=== PATIENT | female | born 1930 | race African-American/Black ===

== ENCOUNTER 2017-01-17 03:03 | Observation (INO) | payer MEDICARE, OTHER ==
[~2017-01-17] VITALS: Ht 165.1 cm; Wt 64.9 kg
[2017-01-17] MEDS ORDERED: ASPIRIN 81MG TABLET PO STA (03:35)
[2017-01-17 03:58] LABS: HEMATOCRIT. 33.4 % (36.0-48.0); HEMOGLOBIN. 11.2 g/dL (12.0-16.0); MEAN CORPUSCULAR VOLUME 92.1 fL (81.0-99.0); MEAN PLATELET VOLUME 8.9 fl (7.4-10.4); MONOCYTES % 7.4 % (2.0-8.0); NEUTROPHILS % 51.6 % (40.0-76.0); PLATELET 116 x1000/uL (130-400); RED BLOOD CELL COUNT 3.63 mill/uL (4.2-5.4); RED CELL DISTRIBUTION WIDTH 14.7 % (11.6-14.6)
[2017-01-17 04:09] LABS: CARBON DIOXIDE 33 mEq/L (21-32); CHLORIDE 105 mEq/L (98-107); TROPONIN I < 0.02 ng/mL (0.00-0.04)
[2017-01-17 08:45] VITALS: BP 125/80
[2017-01-17] MEDS ORDERED: DIPHENHYDRAMINE 50MG/ML VIAL IV PRN (09:45)
[2017-01-17] MEDS ORDERED: CLONIDINE 0.1MG TABLET PO PRN (09:45)
[2017-01-17] MEDS ORDERED: NITROGLYCERIN 0.4MG TABLET SL SL PRN (09:45)
[2017-01-17] MEDS ORDERED: GUAIFENESIN 200MG/10ML SUGAR FREE UDC PO PRN (09:45)
[2017-01-17] MEDS ORDERED: ACETAMINOPHEN 325MG TABLET PO PRN (09:45)
[2017-01-17] MEDS ORDERED: TRAMADOL 50MG TABLET PO PRN (09:45)
[2017-01-17] MEDS ORDERED: MAGNESIUM/ALUMINUM HYDROXIDE/SIMETHICONE 30ML UDC PO PRN (09:45)
[2017-01-17] MEDS ORDERED: NA PHOS,M-B/NA PHOS,DI-BA ENEMA 118ML PR PRN (09:45)
[2017-01-17] MEDS ORDERED: ONDANSETRON HCL 4MG/2ML VIAL IV PRN (09:45)
[2017-01-17] MEDS ORDERED: DOCUSATE SODIUM 100MG CAPSULE PO PRN (09:45)
[2017-01-17] MEDS ORDERED: ENOXAPARIN 40MG/0.4ML SYR SUBCUT SCH (09:45)
[2017-01-17] MEDS ORDERED: LORAZEPAM 2MG/ML CPJ IV PRN (09:45)
[2017-01-17] MEDS ORDERED: IPRATROPIUM/ALBUTEROL 0.5-3(2.5)MG/3ML NEB INH PRN (10:00)
[2017-01-17 11:05] LABS: FOLIC ACID (FOLATE) SERUM 7.2 ng/mL (>5.38)
[2017-01-17] MEDS: ENOXAPARIN 30MG/0.3ML SYR SUBCUT SCH (11:40)
[2017-01-17] MEDS: PANTOPRAZOLE SODIUM 40 MG/VIAL IV SCH (11:41)
[2017-01-17 11:44] VITALS: BP 112/58
[2017-01-17] MEDS: SUCRALFATE 1 G/10 ML UDC PO SCH ×3 (12:32→21:23)
[2017-01-17 13:38] LABS: T4 FREE 1.32 ng/dL (0.76-1.46)
[2017-01-17 15:47] VITALS: BP 101/66
[2017-01-17 16:57] LABS: CREATINE KINASE 101 IU/L (26-192); CREATINE KINASE MB FRACTION 1.2 ng/mL (0.5-3.6); TROPONIN I < 0.02 ng/mL (0.00-0.04)
[2017-01-17 20:00] VITALS: BP 146/80
[2017-01-17] MEDS ORDERED: ZOLPIDEM TARTRATE 5MG TABLET PO PRN (21:00)
[2017-01-18] VITALS: BP 138/71
[2017-01-18 00:18] LABS: CREATINE KINASE 91 IU/L (26-192); CREATINE KINASE MB FRACTION 1.6 ng/mL (0.5-3.6); TROPONIN I < 0.02 ng/mL (0.00-0.04)
[2017-01-18 04:00] VITALS: BP 113/51
[2017-01-18] MEDS: SUCRALFATE 1 G/10 ML UDC PO SCH ×3 (06:19→17:17)
[2017-01-18 06:29] LABS: BASOPHILS % 1.3 % (0.0-2.0); EOSINOPHILS % 6.8 % (0.0-5.0); HEMATOCRIT. 34.6 % (36.0-48.0); HEMOGLOBIN. 11.5 g/dL (12.0-16.0); LYMPHOCYTES % 36.8 % (20.0-50.0); MEAN CORPUSCULAR HEMOGLOBIN 30.9 pg (28.0-32.0); MEAN CORPUSCULAR VOLUME 92.7 fL (81.0-99.0); MEAN PLATELET VOLUME 9.7 fl (7.4-10.4); MONOCYTES % 9.9 % (2.0-8.0); NEUTROPHILS % 45.2 % (40.0-76.0); PLATELET 107 x1000/uL (130-400); RED BLOOD CELL COUNT 3.73 mill/uL (4.2-5.4)
[2017-01-18 07:05] LABS: TROPONIN I 0.02 ng/mL (0.00-0.04)
[2017-01-18 08:00] VITALS: BP 118/75
[2017-01-18] MEDS: ENOXAPARIN 30MG/0.3ML SYR SUBCUT SCH (08:51)
[2017-01-18] MEDS: PANTOPRAZOLE SODIUM 40 MG/VIAL IV SCH (08:51)
[2017-01-18] MEDS ORDERED: ASPIRIN 325MG EC TABLET PO SCH (09:00)
[2017-01-18] MEDS ORDERED: SODIUM CHLORIDE 0.9% 10ML VIAL ONE (09:31)
[2017-01-18] MEDS ORDERED: IOHEXOL-350 100 ML BOTTLE ONE (09:31)
[2017-01-18 11:45] VITALS: BP 128/68
[2017-01-18 13:07] VITALS: BP 128/68
[2017-01-18] MEDS: APIXABAN 5 MG TABLET PO SCH ×2 (13:40→17:17)
[2017-01-18 16:00] VITALS: BP 105/63
== END 2017-01-18 17:25 | disposition home or self-care (01) ==
LOC: ER 03:49 → 8WST 05:13 → INTOOBSV 05:13 → EDBEDREQ 05:18 → ENRESERV 07:00
PROVIDERS: ADMIT Ophthalmology; ATTEND Ophthalmology
DX: R07.89 Other chest pain (principal); F03.90 Unspecified dementia, unspecified severity, without behavioral disturbance, psychotic disturbance, mood disturbance, and anxiety; D64.9 Anemia, unspecified; I11.9 Hypertensive heart disease without heart failure; I25.2 Old myocardial infarction; I44.0 Atrioventricular block, first degree; I48.0 Paroxysmal atrial fibrillation; I82.402 Acute embolism and thrombosis of unspecified deep veins of left lower extremity; Z79.82 Long term (current) use of aspirin; Z86.718 Personal history of other venous thrombosis and embolism; Z91.19 Patient's noncompliance with other medical treatment and regimen
CPT/HCPCS: 36415; 71010; 71275; 80048; 80053; 80061; 82550; 82553; 82607; 82746; 83036; 84439; 84443; 84484; 85025; 93005; 93306; 93970; 96372; 96374; 96376; 99285; A4216; C9113; G0378; J1650; J7040; Q9967

== ENCOUNTER 2017-09-09 04:28 | Emergency (ER) | payer OTHER ==
[~2017-09-09] VITALS: Ht 167.6 cm; Wt 72.0 kg
[2017-09-09] MEDS ORDERED: KETAMINE HCL 50 MG/ML 10ML ONE (04:40)
[2017-09-09] MEDS ORDERED: IPRATROPIUM BROMIDE (0.02%) 0.5MG/2.5ML NEB HHN STA (04:54)
[2017-09-09] MEDS ORDERED: METHYLPREDNISOLONE SOD SUCC 125 MG/2 ML VIAL IV STA (04:54)
[2017-09-09 04:55] VITALS: BP 158/83
[2017-09-09] MEDS ORDERED: KETAMINE HCL 50 MG/ML 10ML IV ONE (05:00)
[2017-09-09] MEDS ORDERED: WATER IV ONE (05:00)
[2017-09-09] MEDS ORDERED: MAGNESIUM 2 G PREMIX 50 ML IV ONE (05:00)
[2017-09-09] MEDS ORDERED: DEXT 5% IV ONE (05:00)
[2017-09-09] MEDS ORDERED: AMIODARONE HCL IV ONE (05:00)
[2017-09-09] MEDS ORDERED: SODIUM CHLORIDE 0.9% 1000ML BAG (SEPSIS BOLUS) IV ONE (05:00)
[2017-09-09] MEDS ORDERED: PROPOFOL 200MG/20ML VIAL IV ONE (05:00)
[2017-09-09] MEDS ORDERED: ALBUTEROL (0.083%) 2.5MG/3ML NEB HHN SCH (05:00)
[2017-09-09] MEDS ORDERED: EPINEPHRINE 0.1MG/ML (1:10,000) 10ML SYR IV ONE (05:00)
[2017-09-09] MEDS ORDERED: AMIODARONE HCL 50MG/ML 3ML VIAL IV ONE (05:05)
[2017-09-09] MEDS ORDERED: EPINEPHRINE 0.1MG/ML (1:10,000) 10ML SYR ONE ×2 (05:12→05:17)
== END 2017-09-09 05:16 | disposition expired ==
LOC: ER 04:29
DX: J96.90 Respiratory failure, unspecified, unspecified whether with hypoxia or hypercapnia (principal)
CPT/HCPCS: 31500; 82962; 92950; 99285; J0282; J3490; J7030; 94002; J7060; J7611